=== PATIENT | male | born 1945 | race Caucasian/White ===

== ENCOUNTER → 2018-04-18 13:37 | Outpatient (CLI) | payer MEDICARE, OTHER, SELFPAY ==
--- NOTE | 2018-04-18 | OV.WND_ITS ---
Progress Note Details Patient Name: Kaveh Renteria Patient Number: [id number] PatientPatientDate: 04/18/2018 Clinician: Cuca Mcdonald Clinician Cosigner: Raquel Carty Physician / Pathologist Assistant: Kaveh Calderon SUBJECTIVE Chief Complaint This information was obtained from the patient Surgical wound on right lower leg. Allergies NKDA HPI This information was obtained from the patient 04/18/18. Seen by Dr. Calderon. The patient underwent a Mohs procedure of the right lower leg about 10 days ago and presents for assistance with healing by secondary intention due to the size and depth of the wound. The patient reports drainage from the wound and mild pain and he completed a course of Keflex following his procedure. 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 Stuart) Psoriasis Surgical History This information was obtained from the patient Patient has a surgical history of: Tonsillectomy Appendectomy (1974) C4-5 Fusion Hip replacement bilateral (2009 and 2012) Complaints and Symptoms This information was obtained from the patient Patient complains of: General Notes: I have reviewed and concur with the Review of Systems and Past Family Social History documents completed by the clinician, I have reviewed and concur with the Wound Assessment document completed by the clinician Cardiovascular (Central/Peripheral): Lower extremity (leg) swelling Integumentary (Hair/Skin/Nails): Open Sore Prior Wound History: Drainage, Pain Patient denies complaints or symptoms related to: Cardiovascular (Central): Irregular heart beat Cardiovascular (Central/Peripheral): Intermittent Claudication, Lower extremity (leg) resting pain Ear/Nose/Mouth/Throat: Hearing Loss / Aid Hematologic/Lymphatic: Bleeding / Clotting Disorders, Bleeding Tendency Musculoskeletal: Assistive Devices Neurological: Loss of Protective Sensation Psychiatric: Memory Loss Respiratory: Shortness of Breath General Notes: Up to date Additional Information Does patient have a history of Cancer? Yes? Complete all questions.: Yes Location of Cancer: Pancreas Patient underwent Radiation Treatment? If yes, answer question below.: No Medications gentamicin 0.1 % topical ointment topical ointment topical once daily for 7 days OBJECTIVE Constitutional Vital signs reviewed and noted. Well developed. Alert. Clean appearing.. Height/ Length: 68 in (172.72 cm), Weight: 182.1 lbs (82.77 kgs), BMI: 27.7, Temperature: 98.0 ?F ( 36.67 ?C), Pulse: 66 bpm, Respiratory Rate: 16 breaths/min, Blood Pressure: 122/73 mmHg, Pulse Oximetry: 96 %. Ears, Nose, Mouth, and Throat: No clinically significant hearing loss on informal examination. Respiratory: No respiratory distress. Even respirations and without use of accessory muscles.. Cardiovascular: 1+ right lower extremity edema. Integumentary (Hair, Skin) Mild periwound erythema with warmth. Refer to appropriate clinician wound documentation for this visit; right lower leg wound extends to subcut with base partially covered with pink granulation, remainder fibrin and slough. Wound #1 Right Leg is an acute Full Thickness Surgical Wound and has received a status of Not Healed. Initial wound encounter measurements are 2.8cm length x 3cm width x 0.3cm depth, with an area of 8.4 sq cm and a volume of 2.52 cubic cm. No tunneling has been noted. No sinus tract has been noted. No undermining has been noted. There is a moderate amount of serosanguineous drainage noted which has no odor. The patient reports a wound pain of level 2/10. The wound margin is attached. Wound bed has No epithelialization, No eschar, Yes slough, Yes bright red, spongy granulation. The periwound skin moisture is normal. The periwound skin exhibited: Edema, Induration, Erythema. The periwound skin did not exhibit: Brawny Induration, Excoriation, Callus, Crepitus, Fluctuance, Friable, Rash, Atrophie [place], Cyanosis, Ecchymosis, Hemosiderosis, Pallor, Rubor. The temperature of the periwound skin is Warm. Periwound skin presents with s/s of infection. Confirmation Description and Treatment Plan is: Signs and Symptoms Present. Local Pulse is Palpable. Neurological: Cranial nerves grossly intact with symmetric function normal by informal observation.. ASSESSMENT Active Problems ICD-10 (Encounter Diagnosis) S81.801D - Unspecified open wound, right lower leg, subsequent encounter (Encounter Diagnosis) T81.31XD - Disruption of external operation (surgical) wound, not elsewhere classified, subsequent encounter (Encounter Diagnosis) L08.9 - Local infection of the skin and subcutaneous tissue, unspecified PROCEDURES Wound #1 Wound #1 (Surgical Wound) is located on the right leg. A skin/subcutaneous tissue level surgical debridement with a total area debrided of 8.4 sq cm was performed by Kaveh Calderon MD. Subcutaneous was removed along with devitalized tissue: exudate and slough. The following instrument(s) were used: curette. Pain control was achieved using 4% [place]. A time out was conducted prior to the start of the procedure. A moderate amount of bleeding was controlled with silver nitrate. The procedure was tolerated well with a pain level of 0 throughout and a pain level of 0 following the procedure. Post Debridement Measurements: 2.8cm length x 3cm width x 0.4cm depth; with an area of 8.4 sq cm and a volume of 3.36 cubic cm; Additional Information Muscle fascia or bone removed and sent to pathology?: No PLAN Wound Orders: Wound #1 Right Leg Anesthetic Topical Xylocaine to wound bed. - Lidocaine applied in clinic only. Cleanser Cleanse Wound: - Distilled water and gauze. May Shower. - Cover leg with cast protector (can be purchased at [employer]) or use plastic bag and tape. Topical Treatments Antibiotic/Antimicrobial Ointment/Cream. - Gentamicin ointment, using a clean q- tip applicator. Dressings Primary dressing: - Aquacel 2x2. Cover and secure with: - Bordered foam applied in clinic, kerramax ordered to be sent to your home. Change Dressing: - Daily. Follow-Up Appointments Return Appointment: - - One week. Other information: If you develop fever, chills, increased pain, drainage, redness or swelling please call our office. If after hours, respond to the ER. Should you experience any significant changes in your wound(s) or have any questions regarding your home care instructions please contact the wound center @ [phone]. If after hours, contact your primary care physician or go to the hospital emergency room. Scribing Attestation I attest, as the nurse, that I scribed these orders for the physician. Laboratory: Culture Wound Medications prescribed: gentamicin - topical 0.1 % ointment once daily for 7 days starting 04/17/2018 General Notes: Will call with culture results if any oral antibiotics are required. I've reviewed the clinician's documentation and agree with the evaluation and plan as written. In addition the patient's wound demonstrates evidence of non-viable devitalized tissue which will continue to benefit from sharp debridement to help promote granulation and expedite healing. Also, I've cultured the wound base and started treating a superficial infection with topical gentamicin ointment. I'll consider adding an oral antibiotic pending the culture results. Electronic Signature(s) Signed By: Date: Kaveh Calderon MD 04/19/2018 08:14:12 Entered By: Kaveh Calderon on 04/19/2018 06:51:31
== END ==
PROVIDERS: PCP Family Medicine; Referring Provider Dermatology MOHS-Micrographic Surgery; Visit Provider Internal Medicine
DX: T81.31XA Disruption of external operation (surgical) wound, not elsewhere classified, initial encounter (principal); S81.801A Unspecified open wound, right lower leg, initial encounter; L08.9 Local infection of the skin and subcutaneous tissue, unspecified
CPT/HCPCS: 11042; 87070; 87075; 87077; 87147; 87186; 87205; 99214

== ENCOUNTER → 2018-04-25 14:24 | Outpatient (CLI) | payer MEDICARE, OTHER, SELFPAY | PROVIDERS: PCP Family Medicine; Visit Provider Family Medicine | DX: S81.801A Unspecified open wound, right lower leg, initial encounter (principal); T81.31XA Disruption of external operation (surgical) wound, not elsewhere classified, initial encounter; L08.9 Local infection of the skin and subcutaneous tissue, unspecified | CPT/HCPCS: 11042; 93922; 99213 ==

== ENCOUNTER → 2018-05-03 15:31 | Outpatient (CLI) | payer MEDICARE, OTHER, SELFPAY | PROVIDERS: PCP Family Medicine; Referring Provider Family Medicine; Visit Provider Family Medicine | DX: S81.801A Unspecified open wound, right lower leg, initial encounter (principal); T81.31XA Disruption of external operation (surgical) wound, not elsewhere classified, initial encounter; L08.9 Local infection of the skin and subcutaneous tissue, unspecified | CPT/HCPCS: 11042; 99203; 99213 ==

== ENCOUNTER → 2018-05-10 13:42 | Outpatient (CLI) | payer MEDICARE, OTHER, SELFPAY | PROVIDERS: PCP Family Medicine; Visit Provider Family Medicine | DX: S81.801A Unspecified open wound, right lower leg, initial encounter (principal); T81.31XA Disruption of external operation (surgical) wound, not elsewhere classified, initial encounter; L08.9 Local infection of the skin and subcutaneous tissue, unspecified | CPT/HCPCS: 11042 ==

== ENCOUNTER → 2018-05-17 11:06 | Outpatient (CLI) | payer MEDICARE, OTHER, SELFPAY | PROVIDERS: PCP Family Medicine; Visit Provider Family Medicine | DX: S81.801D Unspecified open wound, right lower leg, subsequent encounter (principal); T81.31XD Disruption of external operation (surgical) wound, not elsewhere classified, subsequent encounter; B95.7 Other staphylococcus as the cause of diseases classified elsewhere | CPT/HCPCS: 99213 ==

== ENCOUNTER → 2018-05-24 09:53 | Outpatient (CLI) | payer MEDICARE, OTHER, SELFPAY | PROVIDERS: PCP Family Medicine; Visit Provider Family Medicine | DX: S81.801D Unspecified open wound, right lower leg, subsequent encounter (principal); T81.31XD Disruption of external operation (surgical) wound, not elsewhere classified, subsequent encounter | CPT/HCPCS: 99212; 99213 ==

== ENCOUNTER → 2018-05-31 09:41 | Outpatient (CLI) | payer MEDICARE, OTHER, SELFPAY | PROVIDERS: PCP Family Medicine; Visit Provider Family Medicine | DX: S81.801D Unspecified open wound, right lower leg, subsequent encounter (principal); T81.31XD Disruption of external operation (surgical) wound, not elsewhere classified, subsequent encounter | CPT/HCPCS: 99213 ==

== ENCOUNTER → 2018-06-14 09:59 | Outpatient (CLI) | payer MEDICARE, OTHER, SELFPAY | PROVIDERS: PCP Family Medicine; Visit Provider Family Medicine | DX: S81.801D Unspecified open wound, right lower leg, subsequent encounter (principal); T81.31XD Disruption of external operation (surgical) wound, not elsewhere classified, subsequent encounter | CPT/HCPCS: 99213 ==

== ENCOUNTER → 2018-06-21 13:35 | Outpatient (CLI) | payer MEDICARE, OTHER, SELFPAY | PROVIDERS: PCP Family Medicine; Visit Provider Family Medicine | DX: Z48.817 Encounter for surgical aftercare following surgery on the skin and subcutaneous tissue (principal) | CPT/HCPCS: 99212; 99213 ==

== ENCOUNTER 2023-07-13 10:19 | Emergency (ER) | payer MEDICARE, OTHER, SELFPAY ==
[2023-07-13 10:27] VITALS: O2SAT 96
[2023-07-13 10:28] VITALS: BP 146/91; PULSE 76; O2SAT 98
[2023-07-13 10:30] VITALS: PULSE 78; O2SAT 98
[2023-07-13 10:32] VITALS: BP 146/91; PULSE 78; RESP 20; TEMP 37; O2SAT 98; BMI 29.2
[2023-07-13 11:00] VITALS: PULSE 79; O2SAT 96
--- NOTE | 2023-07-13 11:00 | DI.CT.S_ITS ---
PROCEDURE: CT MASTOID TEMPORAL INDICATIONS: ear pain, mastoid tender, dizzy COMPARISON: None. TECHNIQUE: Noncontrast 0.6 mm thick axial sections acquired through each temporal bone separately. Coronal images are reformatted. FINDINGS: Image quality: Excellent. RIGHT: External auditory canal: Canal has a normal appearance. Middle ear: The middle ear structures, including the ossicles and tympanic membrane, appear normal. No abnormal fluid or soft tissue density. Inner ear: Inner ear is normally formed and appears unremarkable. Facial nerve appears normal throughout is course. Mastoids: Mastoid air cells are clear. LEFT: External auditory canal: Skin thickening noted with debris in the external auditory canal. No erosions. Middle ear: Middle ear is filled with fluid density. Ossicular chain intact. Tympanic membrane appears to be bulging. Fluid in the in the attic antrum extending into the mastoid Inner ear: Inner ear is normally formed and appears unremarkable. Facial nerve appears normal throughout its course. Mastoids: Fluid throughout the mastoid is present without septal coalescence. External cortex appears intact. MISCELLANEOUS: Visualized surrounding bones appear unremarkable. Visualized intracranial structures, including the cerebellopontine angle cisterns, appear normal. IMPRESSION: External auditory canal skin thickening consistent with otitis externa without erosions. Fluid in the middle ear and mastoid consistent with otomastoiditis. Ossicular chain intact. No septal coalescence. Approved by: Clark Carroll M.D. on 07/13/2023 at 11:01
--- NOTE | 2023-07-13 11:01 | ED_ITS ---
HPI - Ear Problem General Chief complaint: Ear Stated complaint: ear pain Time Seen by Provider: 07/13/23 10:49 Source: patient and family Mode of arrival: Ambulatory History of Present Illness HPI Narrative: This is a 77-year-old man with a history of prostate cancer presenting with left ear pain decreased hearing and dizziness. He has had left ear pain for 4 days. Has not had any URI symptoms or congestion recently he has not had any fevers. Says that the symptoms have been getting worse over the last 4 days hearing is decreased in his ear is very sensitive now. He took a couple of Tylenol earlier today reports his pain is presently adequately controlled. Has not had ear infections previously. No numbness or weakness difficulty with speech but he does feel like his equilibrium is off. There has been no discharge from the ear. Related Data Previous Rx's Medication Instructions Recorded amoxicillin 875 mg-potassium 1 tab PO BID #20 tabs 07/13/23 clavulanate 125 mg tablet ciprofloxacin 0.3 %-dexamethasone 4 drp EAR-LEFT BID 7 days #7.5 mL 07/13/23 0.1 % ear drops,suspension Patient History Social History Smoking Status: Never smoker Smoking Status: Never smoker alcohol intake frequency: holidays/special occasions only Substance Use Type: does not use Exam Initial Vital Signs Initial Vital Signs: Vital Signs Temperature 98.6 F 07/13/23 10:32 Pulse Rate 78 07/13/23 10:32 Respiratory Rate 20 07/13/23 10:32 Blood Pressure 146/91 H 07/13/23 10:32 Pulse Oximetry 98 07/13/23 10:32 Oxygen Delivery Method Room Air 07/13/23 10:32 Const General: No acute distress [facility] Head: normocephalic and atraumatic Face and sinus: normal facial exam [facility] Other: Has tenderness around the left ear and in the left mastoid. There is no cervical adenopathy. The canal is swollen and tender, the TM is injected and opacified. No discharge in the canal. Neck Neck: full ROM Lymphatic: No lymphadenopathy Resp Effort & Inspection: normal respiratory effort and able to speak in complete sentences Skin General: dry skin and warm Neuro General: patient alert, patient oriented x3, moves all extremities, no meningeal signs, no focal motor deficits and other (Ambulatory with a steady gait) Course Orders Ordered: ED Orders 07/13/23 11:00 CT mastoid temporal Stat Consultations Consultation #1: Case discussed with Dr. Jimenez, ENT-oral and topical antibiotics appropriate in this setting with evidence of infection both middle and outer ear. Vital Signs Vital signs: Vital Signs - 8 hr 07/13/23 10:32 Temperature 98.6 F Pulse Rate 78 Respiratory Rate 20 Blood Pressure 146/91 H Pulse Oximetry 98 Oxygen Delivery Method Room Air Medical Decision Making Imaging Data CT mastoids: Radiologist's Impression: LEFT: External auditory canal: Skin thickening noted with debris in the external auditory canal. No erosions. Middle ear: Middle ear is filled with fluid density. Ossicular chain intact. Tympanic membrane appears to be bulging. Fluid in the in the attic antrum extending into the mastoid Inner ear: Inner ear is normally formed and appears unremarkable. Facial nerve appears normal throughout its course. Mastoids: Fluid throughout the mastoid is present without septal coalescence. External cortex appears intact. MISCELLANEOUS: Visualized surrounding bones appear unremarkable. Visualized intracranial structures, including the cerebellopontine angle cisterns, appear normal. IMPRESSION: External auditory canal skin thickening consistent with otitis externa without erosions. Fluid in the middle ear and mastoid consistent with otomastoiditis. Ossicular chain intact. No septal coalescence. Approved by: Clark Carroll M.D. on 07/13/2023 at 11:01 [facility] Narrative Medical decision making narrative: 77-year-old male without major comorbidities presenting with left ear pain and decreased hearing. Examination shows evidence of mastoiditis, has also evidence of external ear infection with intact canal. He has not systemically ill, does not have evidence of mastoiditis requiring intervention other than oral antibiotics today. Did discuss the case briefly with otolaryngology. Started him on Augmentin and Ciprodex. Patient feels that acetaminophen will be sufficient for pain. Discharge Plan Departure Patient Disposition: Home Clinical Impression: Otitis externa Qualifiers: Otitis externa type: other infective Chronicity: acute Laterality: left Qualified Code(s): H60.392 - Other infective otitis externa, left ear Otitis media Qualifiers: Otitis media type: suppurative Chronicity: acute Laterality: left Recurrence: non-recurrent Spontaneous tympanic membrane rupture: without spontaneous rupture Qualified Code(s): H66.002 - Acute suppurative otitis media without spontaneous rupture of ear drum, left ear Instructions: How to Instill Ear Drops Activity Restrictions/Additional Instructions: Exam and imaging today shows evidence of infection in both the middle and outer ear. I have started prescriptions of Augmentin and Ciprodex drops. Take these as prescribed for the full course. You may use acetaminophen (Tylenol) as needed for pain. Follow up with primary care and your own ENT doctor soon. Return to the emergency department for fevers uncontrolled pain frequent vomiting or other acute symptoms. Prescriptions: New amoxicillin-pot clavulanate 875-125 mg tablet 1 tab PO BID Qty: 20 0RF ciprofloxacin-dexamethasone 0.3-0.1 % drops,suspension 4 drp EAR-LEFT BID 7 Days Qty: 7.5 0RF Referrals: Dipti Simpson MD [Primary Care Provider] - Stand Alone Forms: Patient Portal/API
[2023-07-13 13:07] VITALS: BP 152/95; PULSE 78; O2SAT 98
== END 2023-07-13 13:07 | disposition home or self-care (01) ==
PROVIDERS: Emergency Provider Emergency Medicine; PCP Family Medicine
DX: H60.392 Other infective otitis externa, left ear (principal); H66.002 Acute suppurative otitis media without spontaneous rupture of ear drum, left ear
CPT/HCPCS: 70480; 99283; 99284